=== PATIENT | male | born 1965 | race African-American/Black ===

== ENCOUNTER 2021-08-02 08:53 | Outpatient (CLI) | payer OTHER | END 2021-08-02 08:54 | disposition home or self-care (01) | LOC: CSHULT 08:53 | PROVIDERS: ATTEND Physician Assistant | DX: E04.9 Nontoxic goiter, unspecified (principal); E04.2 Nontoxic multinodular goiter | CPT/HCPCS: 76536 ==

== ENCOUNTER 2021-09-01 09:55 | Outpatient (CLI) | payer OTHER ==
[2021-09-01 10:35] LABS: Hemoglobin 11.1 g/dL (13.5-17.5); Mean Corpuscular HGB CONC 31.4 g/dL (32.0-36.0); Mean Corpuscular Hemoglobin 33.7 pg (27.0-33.0); Mean Corpuscular Volume 107.3 fl (81.2-95.1); Mean Platelet Volume 11.7 fl (7.4-10.4); Platelet Count 132 10x3/uL (150-450); RBC Distribution Width 12.9 % (11.5-14.5); Red Blood Cell (RBC) Count 3.29 10x6/uL (4.32-5.72); White Blood Cell (WBC) Count 6.8 10x3/uL (3.5-10.5)
[2021-09-01 11:12] LABS: Anion Gap 12 mmol/L (10-20); BUN (Urea Nitrogen) 39 mg/dL (8.4-25.7); Calc. Creatinine Clearance 0 mL/min (70-130); Calcium 8.2 mg/dL (7.8-10.44); Carbon Dioxide 21 mmol/L (22-29); Chloride 108 mmol/L (98-107); Glucose 102 mg/dL (70-105); Potassium 4.5 mmol/L (3.5-5.1); Sodium 136 mmol/L (136-145)
[2021-09-01 21:34] LABS: SARS-CoV-2 PCR by NAA Not Detected (NotDetected)
== END 2021-09-01 09:56 | disposition home or self-care (01) ==
LOC: CSHLAB 09:55
PROVIDERS: ATTEND Otolaryngology Otolaryngic Allergy
DX: Z01.812 Encounter for preprocedural laboratory examination (principal); Z20.822 Contact with and (suspected) exposure to COVID-19
CPT/HCPCS: 80048; 85027; 93005; 93010; U0003; U0005

== ENCOUNTER → 2021-09-06 | Day surgery (SDC) | payer OTHER | LOC: CSHSDC 09:22 | PROVIDERS: ATTEND Otolaryngology Otolaryngic Allergy | DX: E04.1 Nontoxic single thyroid nodule (principal); Z53.8 Procedure and treatment not carried out for other reasons ==

== ENCOUNTER 2021-11-11 09:41 | Outpatient (CLI) | payer OTHER ==
[2021-11-11 11:30] LABS: Hemoglobin 12.4 g/dL (13.5-17.5); Mean Corpuscular Hemoglobin 32.1 pg (27.0-33.0); Mean Corpuscular Volume 103.6 fl (81.2-95.1); Mean Platelet Volume 12.1 fl (7.4-10.4); Platelet Count 188 10x3/uL (150-450); RBC Distribution Width 13.7 % (11.5-14.5); Red Blood Cell (RBC) Count 3.86 10x6/uL (4.32-5.72); White Blood Cell (WBC) Count 7.2 10x3/uL (3.5-10.5)
[2021-11-11 11:42] LABS: Anion Gap 14 mmol/L (10-20); BUN (Urea Nitrogen) 36 mg/dL (8.4-25.7); Calc. Creatinine Clearance 0 mL/min (70-130); Calcium 8.4 mg/dL (7.8-10.44); Carbon Dioxide 24 mmol/L (22-29); Chloride 106 mmol/L (98-107); Glucose 76 mg/dL (70-105); Potassium 4.5 mmol/L (3.5-5.1); Sodium 139 mmol/L (136-145)
[2021-11-11 20:33] LABS: SARS-CoV-2 PCR by NAA Not Detected (NotDetected)
== END 2021-11-11 09:42 | disposition home or self-care (01) ==
LOC: CSHLAB 09:41
PROVIDERS: ATTEND Otolaryngology Otolaryngic Allergy
DX: Z01.818 Encounter for other preprocedural examination (principal); Z20.822 Contact with and (suspected) exposure to COVID-19; E04.1 Nontoxic single thyroid nodule
CPT/HCPCS: 80048; 85027; 93005; 93010; U0003; U0005

== ENCOUNTER 2021-11-16 05:55 | Observation (INO) | payer SELFPAY ==
[2021-11-16] MEDS ORDERED: Lidocaine 1% MPF 2 ML VIAL ONE (06:15)
[2021-11-16] MEDS ORDERED: Dexamethasone 20 MG/5 ML VIAL ONE (06:40)
[2021-11-16] MEDS ORDERED: Lidocaine 1% PF 5 ML VIAL ONE (06:40)
[2021-11-16] MEDS ORDERED: Rocuronium Bromide 10 MG/ML (10ML VIAL) ONE (06:40)
[2021-11-16] MEDS ORDERED: Fentanyl 100 MCG/2 ML VIAL ONE (06:40)
[2021-11-16] MEDS ORDERED: Ondansetron PF 4 MG/2 ML Vial ONE (06:40)
[2021-11-16] MEDS ORDERED: Midazolam HCl 2 mg/2 ml Vial ONE ×2 (06:40→07:12)
[2021-11-16] MEDS ORDERED: PROPOFOL 20 ML ONE (06:40)
[2021-11-16] MEDS ORDERED: HYDROcodone/Acetaminophen 5/325 mg Tablet PO PRN (06:50)
[2021-11-16] MEDS ORDERED: Phenylephrine 10 MG/ML VIAL ONE (07:04)
[2021-11-16] MEDS ORDERED: CEFAZOLIN 1 GM VIAL ONE (07:06)
[2021-11-16] MEDS ORDERED: PHENYLEPHRINE-NS 100 MCG/ML 10 ML SYRINGE ONE (07:10)
[2021-11-16] MEDS ORDERED: ePHEDrine Sulfate 50 MG/10 ML VIAL ONE (07:11)
[2021-11-16] MEDS ORDERED: Lidocaine 1% w/Epinephrine 1:100K 20 ML VIAL ONE (07:37)
[2021-11-16] MEDS ORDERED: Carvedilol 12.5 MG TAB PO SCH ×2 (09:00→09:45)
[2021-11-16] MEDS ORDERED: Ondansetron HCl/PF 4 MG/2 ML Vial IVP PRN (09:30)
[2021-11-16] MEDS ORDERED: Isosorbide Dinitrate 20 MG TAB PO SCH ×2 (09:45→21:00)
[2021-11-16] MEDS: Calcium Carbonate 500 MG ChewTAB PO SCH ×3 (11:09→19:54)
[2021-11-16] MEDS: Escitalopram Oxalate 10 mg Tablet PO SCH (11:10)
[2021-11-16] MEDS: Carvedilol 12.5 MG TAB PO SCH (11:10)
[2021-11-16] MEDS: Folic Acid 1 MG TAB PO SCH (11:10)
[2021-11-16] MEDS: Potassium Chloride 10 MEQ TAB PO SCH (11:10)
[2021-11-16] MEDS: hydrALAZINE 25 MG TAB PO SCH ×3 (11:11→19:54)
[2021-11-16 11:38] VITALS: BMI 18.3
[2021-11-16] MEDS: Torsemide 20 MG TAB PO SCH (11:54)
[2021-11-16] MEDS: HYDROcodone/Acetaminophen 5/325 mg Tablet PO PRN (17:34)
[2021-11-16] MEDS: Isosorbide Dinitrate 20 MG TAB PO SCH (19:54)
[2021-11-16 20:28] VITALS: TEMP 97.8
[2021-11-16] MEDS ORDERED: Atorvastatin Calcium 40 MG TAB PO SCH (21:00)
[2021-11-17] MEDS: HYDROcodone/Acetaminophen 5/325 mg Tablet PO PRN ×2 (03:09→13:10)
[2021-11-17 04:12] LABS: Anion Gap 16 mmol/L (10-20); BUN (Urea Nitrogen) 41 mg/dL (8.4-25.7); Calc. Creatinine Clearance 23 mL/min (70-130); Calcium 8.9 mg/dL (7.8-10.44); Carbon Dioxide 20 mmol/L (22-29); Chloride 107 mmol/L (98-107); Glucose 116 mg/dL (70-105); Potassium 4.9 mmol/L (3.5-5.1); Sodium 138 mmol/L (136-145)
[2021-11-17] MEDS: Torsemide 20 MG TAB PO SCH (08:19)
[2021-11-17] MEDS: Isosorbide Dinitrate 20 MG TAB PO SCH (08:19)
[2021-11-17] MEDS: hydrALAZINE 25 MG TAB PO SCH ×2 (08:19→15:59)
[2021-11-17] MEDS: Carvedilol 12.5 MG TAB PO SCH (08:20)
[2021-11-17] MEDS: Potassium Chloride 10 MEQ TAB PO SCH (08:20)
[2021-11-17] MEDS: Folic Acid 1 MG TAB PO SCH (08:20)
[2021-11-17] MEDS: Escitalopram Oxalate 10 mg Tablet PO SCH (08:20)
[2021-11-17] MEDS: Calcium Carbonate 500 MG ChewTAB PO SCH ×2 (08:21→15:57)
[2021-11-17 08:22] VITALS: BP 120/61
[2021-11-17] MEDS ORDERED: FLU VACC QS2021-22(6MOS UP)/PF 60 MCG/0.5 ML SYRINGE IM ONE (13:15)
== END 2021-11-17 20:20 | disposition home or self-care (01) ==
LOC: CSHSDC 05:55 → INTOOBSV 09:15 → CSHIMCU 09:15
PROVIDERS: ADMIT Otolaryngology Otolaryngic Allergy; ATTEND Hospitalist
PROC: 0GTK0ZZ Resection of Thyroid Gland, Open Approach (ICD-10-PCS; principal; 2021-11-16)
PROC: 0GBJ0ZZ Excision of Thyroid Gland Isthmus, Open Approach (ICD-10-PCS; 2021-11-16)
DX: E04.1 Nontoxic single thyroid nodule (principal); Z79.899 Other long term (current) drug therapy; Z79.82 Long term (current) use of aspirin; I13.0 Hypertensive heart and chronic kidney disease with heart failure and stage 1 through stage 4 chronic kidney disease, or unspecified chronic kidney disease; I50.9 Heart failure, unspecified; N18.9 Chronic kidney disease, unspecified; I25.10 Atherosclerotic heart disease of native coronary artery without angina pectoris; F32.A Depression, unspecified; F41.9 Anxiety disorder, unspecified; F17.200 Nicotine dependence, unspecified, uncomplicated; Z95.810 Presence of automatic (implantable) cardiac defibrillator
CPT/HCPCS: 36415; 80048; 82310; 83970; 88307; 88323; J0690; J1100; J2250; J2370; J2405; J2704; J3010

== ENCOUNTER 2023-04-12 03:45 | Emergency (ER) | payer MEDICAID, OTHER ==
[2023-04-12] MEDS ORDERED: Acetaminophen 500 MG TAB ONE (04:32)
[2023-04-12 04:57] LABS: #Basophils 0.1 10x3/uL (0.0-0.2); #Eosinphils 0.1 10x3/uL (0.0-0.5); #Monocytes 0.4 10x3/uL (0.0-1.1); #Neutrophils 5.9 10x3/uL (1.5-8.4); %Basophils 0.8 % (0.0-2.0); %Eosinophils 1.3 % (0.0-6.0); %Lymphocytes 26.5 % (18.0-47.0); %Monocytes 4.7 % (0.0-10.0); %Neutrophils 66.4 % (40.0-75.0); Hemoglobin 10.8 g/dL (13.5-17.5); Mean Corpuscular HGB CONC 32.3 g/dL (32.0-36.0); Mean Corpuscular Hemoglobin 32.8 pg (27.0-33.0); Mean Corpuscular Volume 101.5 fl (81.2-95.1); Mean Platelet Volume 11.5 fl (7.4-10.4); Platelet Count 180 10x3/uL (150-450); RBC Distribution Width 14.5 % (11.5-14.5); Red Blood Cell (RBC) Count 3.29 10x6/uL (4.32-5.72); White Blood Cell (WBC) Count 8.9 10x3/uL (3.5-10.5)
[2023-04-12 05:10] LABS: ALT (SGPT) 24 U/L (8-55); AST (SGOT) 32 U/L (5-34); Albumin 3.7 g/dL (3.5-5.0); Alkaline Phosphatase 61 U/L (40-110); Anion Gap 16 mmol/L (10-20); BUN (Urea Nitrogen) 64 mg/dL (8.4-25.7); Bilirubin, Total 0.5 mg/dL (0.2-1.2); Calc. Creatinine Clearance 0 mL/min (70-130); Calcium 8.6 mg/dL (7.8-10.44); Carbon Dioxide 22 mmol/L (22-29); Chloride 106 mmol/L (98-107); Estimated GFR 26; Globulin 3.8 g/dL (2.4-3.5); Glucose 139 mg/dL (70-105); Potassium 4.1 mmol/L (3.5-5.1); Protein, Total 7.5 g/dL (6.0-8.3); Sodium 140 mmol/L (136-145)
[2023-04-12 05:35] LABS: CKMB 1.6 ng/mL (0-6.6)
[2023-04-12] MEDS ORDERED: Dicyclomine 20 MG/2 ML VIAL ONE (06:34)
[2023-04-12] MEDS ORDERED: Amiodarone 200 MG TAB PO SCH (07:45)
[2023-04-12 08:05] LABS: Troponin I 0.185 ng/mL (< 0.028)
== END 2023-04-12 08:17 | disposition home or self-care (01) ==
LOC: CSHERS 03:45
DX: I47.20 Ventricular tachycardia, unspecified (principal); R77.8 Other specified abnormalities of plasma proteins; I11.0 Hypertensive heart disease with heart failure; I50.9 Heart failure, unspecified; I25.10 Atherosclerotic heart disease of native coronary artery without angina pectoris; F17.220 Nicotine dependence, chewing tobacco, uncomplicated
CPT/HCPCS: 36415; 71045; 80053; 82553; 84484; 85025; 93005; 96372

== ENCOUNTER → 2024-09-20 | Emergency (ER) | payer OTHER, SELFPAY ==
[~2024-09-20] MED LIST: Pantoprazole 40 MG VIAL ONE
[2024-09-20 14:01] LABS: #Basophils 0.01 10x3/uL (0.0-0.2); #Eosinophils 0.11 10x3/uL (0.0-0.5); #Monocytes 0.63 10x3/uL (0.0-1.1); #Neutrophils 4.48 10x3/uL (1.5-8.4); %Basophils 0.1 % (0.0-2.0); %Eosinophils 1.5 % (0.0-6.0); %Lymphocytes 28.9 % (18.0-47.0); %Monocytes 8.5 % (0.0-10.0); %Neutrophils 60.1 % (40.0-75.0); Critical Call w/ Read Back ERS.AC4 @1401; Hematocrit 16.9 % (38.8-50.0); Hemoglobin 4.7 g/dL (13.5-17.5); Mean Corpuscular HGB CONC 27.8 g/dL (32.0-36.0); Mean Corpuscular Hemoglobin 32.2 pg (27.0-33.0); Mean Corpuscular Volume 115.8 fL (81.2-95.1); Platelet Count 171 10x3/uL (150-450); Red Blood Cell (RBC) Count 1.46 10x6/uL (4.32-5.72); White Blood Cell (WBC) Count 7.5 10x3/uL (3.5-10.5)
[2024-09-20 14:17] LABS: INR-International Normal Ratio 1.1; Prothrombin Time 11.9 sec (9.5-12.1)
[2024-09-20 14:18] LABS: PTT 20.5 sec (22.0-33.0)
[2024-09-20 14:19] LABS: ALT (SGPT) 178 U/L (8-55); AST (SGOT) 132 U/L (5-34); Albumin 3.1 g/dL (3.4-4.8); Alkaline Phosphatase 73 U/L (40-110); Anion Gap 15 mmol/L (10-20); BUN (Urea Nitrogen) 60 mg/dL (8.4-25.7); Bilirubin, Total 0.3 mg/dL (0.2-1.2); Calc. Creatinine Clearance 0 mL/min (70-130); Calcium 8.2 mg/dL (7.8-10.44); Carbon Dioxide 16 mmol/L (23-31); Chloride 113 mmol/L (98-107); Estimated GFR 28; Globulin 2.9 g/dL (2.4-3.5); Glucose 117 mg/dL (80-115); Potassium 4.7 mmol/L (3.5-5.1); Sodium 139 mmol/L (136-145)
[2024-09-20 14:26] LABS: Troponin I 0.021 ng/mL (< 0.028)
[2024-09-20 15:14] LABS: Anisocytosis MODERATE=16-30 cells (100X) (0-5/hpf); Hypochromia MODERATE=16-30 cells (100X) (0-5/hpf); Macrocytosis MODERATE=16-30 cells (100X) (0-5/hpf); Polychromasia MODERATE = 3-4 cells (100X) (0-2/hpf)
[2024-09-20 15:15] LABS: Ovalocytes SLIGHT = 2-5 cells (100X) (0-1/hpf)
[2024-09-20 15:16] LABS: Platelet Adequacy Comment Appears Adequate; Reflex for Review?? YES; Target Cells SLIGHT = 2-5 cells (100X) (0-1/hpf)
== END ==
LOC: CSHERS 13:32
DX: R55 Syncope and collapse (principal); N18.9 Chronic kidney disease, unspecified; D63.1 Anemia in chronic kidney disease; F17.220 Nicotine dependence, chewing tobacco, uncomplicated
CPT/HCPCS: 36430; 70450; 71250; 72125; 74177; 80053; 83615; 83880; 84484; 85025; 85610; 85730; 86850; 86900; 86901; 86920; 87428; 93005; J2470; P9016; 36415; 85060; 96374